=== PATIENT | male | born 1990 | race African-American/Black ===

== ENCOUNTER 2016-10-12 04:23 | Emergency (ER) | payer BC, OTHER ==
[2016-10-12] MEDS ORDERED: DILAUDID 1 MG/ML AMP ONE (05:30)
[2016-10-12] MEDS ORDERED: LIDOCAINE 1% MDV 20 ML ONE (08:13)
== END 2016-10-12 08:53 | disposition home or self-care (01) ==
LOC: ER 04:23
DX: N49.2 Inflammatory disorders of scrotum (principal); F17.200 Nicotine dependence, unspecified, uncomplicated
CPT/HCPCS: 76870; 81003; 87491; 87591; 96374